=== PATIENT | female | born 1965 | race Caucasian/White ===

== ENCOUNTER → 2018-10-28 | Outpatient (CLI) | payer OTHER | LOC: CARD 08:33 | PROVIDERS: ATTEND Internal Medicine Cardiovascular Disease | DX: R00.0 Tachycardia, unspecified (principal); R06.02 Shortness of breath | CPT/HCPCS: 93017; 93306 ==

== ENCOUNTER → 2021-06-20 | Outpatient (CLI) | payer BC | LOC: CARD 10:30 | PROVIDERS: ATTEND Internal Medicine Cardiovascular Disease | DX: R00.2 Palpitations (principal) | CPT/HCPCS: 93017; 93225; 93226 ==

== ENCOUNTER 2021-11-10 07:48 | Day surgery (SDC) | payer BC ==
[2021-11-10] VITALS (8 sets, daily range): BP systolic 120–142; BP diastolic 78–94
[~2021-11-10] VITALS: Ht 170.2 cm; Wt 65.8 kg
[2021-11-10] MEDS ORDERED: NS IV 1000 ML 1,000 ML ONE (07:53)
[2021-11-10] MEDS ORDERED: HEParin (CATH LAB) 2,000 ML IV ONE (07:53)
[2021-11-10] MEDS ORDERED: LIDOCAINE 1% INJ 20 ML VIAL ONE (07:53)
[2021-11-10 08:21] LABS: HEMATOCRIT 40 % (35-52); HEMOGLOBIN 13.4 g/dL (11.5-16.0); MEAN CORPUSCULAR HEMOGLOBIN 32 pg (25-34); MEAN CORPUSCULAR HGB CONC 34 g/dL (32-36); MEAN CORPUSCULAR VOLUME 94 fL (80-99); MEAN PLATELET VOLUME 10.4 fL (9.0-12.2); PLATELET COUNT 184 10^3/uL (130-400); WHITE BLOOD COUNT 3.4 10^3/uL (4.3-11.0)
[2021-11-10] MEDS ORDERED: fentaNYL INJ 100 MCG/2 ML AMP ONE (08:29)
[2021-11-10] MEDS ORDERED: MIDAZOLAM 5 MG/5 ML (VERSED) VIAL ONE (08:29)
[2021-11-10 08:38] LABS: PROTHROMBIN TIME PATIENT 13.1 SEC (12.2-14.7)
[2021-11-10 08:48] LABS: ALBUMIN 4.2 GM/DL (3.2-4.5); BILIRUBIN,TOTAL 0.5 MG/DL (0.1-1.0); CALCIUM 9.3 MG/DL (8.5-10.1); CREATININE SERUM 0.83 MG/DL (0.60-1.30); POTASSIUM 4.1 MMOL/L (3.6-5.0); TOTAL PROTEIN 7.1 GM/DL (6.4-8.2)
[2021-11-10] MEDS ORDERED: CETI10TA17 PO (08:52)
[2021-11-10] MEDS ORDERED: METO50TA7 PO (08:52)
[2021-11-10] MEDS ORDERED: GLUC100016 PO (08:52)
[2021-11-10] MEDS ORDERED: MELA10TA2 PO (08:52)
[2021-11-10] MEDS ORDERED: IMIP25TA4 PO (08:52)
[2021-11-10] MEDS ORDERED: CALC-140 PO (08:52)
[2021-11-10] MEDS ORDERED: MULT-593 PO (08:52)
[2021-11-10] MEDS ORDERED: NF-PREM2.5 PO (08:52)
[2021-11-10] MEDS ORDERED: TRET40CR4 TP (08:52)
[2021-11-10] MEDS ORDERED: DOCU100T2 PO (08:52)
--- NOTE | 2021-11-10 09:16 | Cardiac Procedure Note-CS/ASA ---
Pre-Procedure Note Pre-Op Procedure Note H&P Reviewed The H&P was reviewed, patient examined and no changes noted. Date H&P Reviewed: November 10, 2021 Time H&P Reviewed: 08:20 Conscious Sedation Pre-Proced Time 08:20 ASA Score 2, 3 For ASA 3 and 4: Consider anesthesia and medical clearance. Also, for patients with a history of failed moderate sedation consider anesthesia. Airway Lungs Heart ASA score ASA 1: a normal healthy patient ASA 2: a patient with a mild systemic disease (mid diabetes, controlled hypertension, obesity ASA 3: a patient with a severe systemic disease that limits activity (angina, COPD, prior Myocardial infarction) ASA 4: a patient with an incapacitating disease that is a constant threat to life (CHF, renal failure) ASA 5: a moribund patient not expected to survive 24 hrs. (ruptured aneurysm) ASA 6: a declared brain- patient whose organs are being harvested. For emergent operations, add the letter E after the classification Mallampati Classification Grade 2 Sedation Plan Analgesia, Amnesia, Plan communicated to team members, Discussed options with patient/fam, Discussed risks with patient/fam The patient is an appropriate candidate to undergo the planned procedure, sedation, and anesthesia. The patient immediately re-assessed prior to indication. KEEGAN COLLINS MD FACP FAC CCDS November 10, 2021 09:16
--- NOTE | 2021-11-10 09:20 | Discharge Inst-Post CATH ---
Discharge Inst-CATH/EP Post Cardiac Cath/EP D/C Inst Follow Up/Plan F/u with Dr Finney in 2-3 weeks ACTIVITY * Go Home directly and rest. * Limit activity of the leg (or wrist if it was used) for 7 days including aerobics, swimming, jogging, bicycling, etc. * Restrict stair-climbing for 7 days if possible, if not, climb up with your non-cath leg, then bring together on the same step. * Avoid lifting, pushing, pulling or excessive movement of the affected extremity for 7 days. * Customary sexual activity may be resumed after 2 days-use caution not to use a position that strains or causes pain to the affected extremity. * No driving for 24 hours. * NO SMOKING. * Avoid straining for bowel movements for 7 days. * Gentle walking on level ground is allowed. * Returning to work will depend on the type of procedure and the results. Your doctor will discuss this with you. CALL YOUR DOCTOR FOR ANY OF THE FOLLOWING: *If bleeding from the puncture site occurs- Apply gentle pressure to site with clean cloth and call your doctor or EMS. * If a knot or lump forms under the skin, increases in size, or causes pain. * If bruising appears to be worsening or moving further down your leg instead of disappearing. * Temperature above 101 F. CARE OF YOUR GROIN INCISION; * Bruising or purple discoloration of the skin near the puncture site is common. * You may shower only, no bathtub bathing for 5 days. Be careful to avoid slipping as your leg may feel stiff. * If a closure device was used on your femoral artery, please see the attached guide regarding care of the device and your leg. * Leave dressing on FOR 24 hours. CARE OF YOUR WRIST INCISION; * Bruising or purple discoloration of the skin near the puncture site is common. * You may shower. * DO NOT submerge wrist. * Leave dressing on FOR 24 hours. KEEGAN FINNEY MD [facility] FAC CCDS November 10, 2021 09:20
--- NOTE | 2021-11-10 09:20 | Discharge Inst-Cardiology ---
Discharge Inst-Cardiac Discharge Medications Continued Medications: Calcium Carbonate/Vitamin D3 (Calcium + Vitamin D Tablet) 600 Mg Calcium-5 Mcg (200 Unit) Tablet 1 EACH PO DAILY, TAB Cetirizine HCl (Cetirizine HCl) 10 Mg Tablet 10 MG PO DAILY, TAB Docusate Sodium (Docusate Sodium) 100 Mg Tablet 200 MG PO BID, TAB Estrog Conj/Medryoxyprog Acet (Prempro 0.625-2.5 mg Tablet) 0.625 Mg-2.5 Mg Tab 1 TAB PO DAILY, TAB Glucosamine Sulfate 2Kcl (Glucosamine) 1,000 Mg Tablet 1000 MG PO DAILY, TAB Imipramine HCl (Imipramine HCl) 25 Mg Tablet 25 MG PO HS, TAB Melatonin (Melatonin) 10 Mg Tablet 10 MG PO HS, TAB Metoprolol Succinate (Metoprolol Succinate) 50 Mg Tab.er.24h 50 MG PO DAILY, TAB Multivitamin with Minerals (Multiple Vitamin) 1 Each Tablet 1 EACH PO DAILY, TAB Tretinoin/Emollient Base (Tretinoin 0.05% Emollient Crm) 0.05 % Cream..g. 1 GM TP HS PRN for RASH, KEEGAN VASQUEZ MD FACP FACC CCDS November 10, 2021 09:20
[2021-11-10] MEDS ORDERED: PATIENT MAY USE OWN MEDS, ALL PO SCH (09:30)
[2021-11-10] MEDS ORDERED: NS IV 1000 ML 1,000 ML IV SCH (09:30)
--- NOTE | 2021-11-10 10:49 | CARDIAC CATHETERIZATION ---
DATE OF SERVICE: 11/10/2021 CARDIAC CATHETERIZATION REPORT INDICATION FOR PROCEDURE: The patient is a 56-year-old lady with coronary artery disease risk factors, hypertension. She has been experiencing vague chest discomfort that is mostly brought on with exertion and relieved with rest. The symptoms have been persistent. Cardiac catheterization was carried out today after having obtained an informed consent. DESCRIPTION OF PROCEDURE: She was brought to the cardiac catheterization laboratory in a fasting state. Right groin was prepared and draped in the usual sterile fashion. Lidocaine 1% was used for local anesthesia. Modified Seldinger technique was used to advance a 5-Czech sheath in right femoral artery, 5-Czech JL4 catheter for left coronary angiography, 5-Czech JR4 catheter for right coronary angiography, 5-Czech pigtail catheter was used for left heart catheterization and left ventricular angiography. At the end of the procedure, angiography of the right femoral artery was carried out through the sheath. Mynx was used to achieve hemostasis. She tolerated the procedure well. HEMODYNAMICS: Left ventricular end-diastolic pressure following coronary angiography was 19 mmHg. There was no significant pressure gradient on pullback across the aortic valve. CORONARY ANGIOGRAPHY: Left main coronary artery, left anterior descending artery, left circumflex artery, right coronary artery are angiographically normal. Right coronary artery is dominant. LEFT VENTRICULAR ANGIOGRAPHY: Left ventricular angiography was carried out in the right anterior oblique projection. Global left ventricular systolic function normal, no regional wall motion abnormalities seen. Left ventricular ejection fraction is estimated to be 65 to 70%. CONCLUSIONS: 1. Angiographically normal coronary arteries. 2. Normal left ventricular systolic function with an ejection fraction approximately 65 to 70%. 3. Left ventricular end-diastolic pressure 19 mmHg. DISCUSSION AND RECOMMENDATIONS: Based on results of the study, it appears appropriate to continue with conservative management. Hypertension is being addressed. Continuing outpatient followup is advised. Job ID: [id number] DocumentID: [id number] Dictated Date: 11/10/2021 09:23:45 Telecommunication Equipment Repairer Date: 11/10/2021 10:48:15 Dictated By: KEEGAN COLLINS MD, MA, FACP, FACC,
== END 2021-11-10 12:25 | disposition home or self-care (01) ==
LOC: CATH 07:48 → SDC 09:40 → CATH 12:25
PROVIDERS: ATTEND Internal Medicine Cardiovascular Disease
DX: I10 Essential (primary) hypertension (principal); R00.2 Palpitations; R07.89 Other chest pain; R06.02 Shortness of breath; R00.0 Tachycardia, unspecified; R06.09 Other forms of dyspnea
CPT/HCPCS: 80053; 80061; 85027; 85610; 85730; 87081; 93458; C1760; C1894; 36415

== ENCOUNTER → 2022-07-16 | Outpatient (CLI) | payer BC ==
[~2022-07-16] MED LIST: CALC-140 PO; CETI10TA17 PO; DOCU100T2 PO; GLUC100016 PO; IMIP25TA4 PO; MELA10TA2 PO; METO50TA7 PO; MULT-593 PO; NF-PREM2.5 PO; RT-ALBUTEROL SULF 2.5 MG/3 ML PRE-MIX VIAL INH ONE; TRET40CR4 TP
== END ==
LOC: RT 15:45
PROVIDERS: ATTEND Internal Medicine Cardiovascular Disease
DX: G47.33 Obstructive sleep apnea (adult) (pediatric) (principal)
CPT/HCPCS: 94060; 94726; 94729

== ENCOUNTER → 2022-07-19 | Outpatient (CLI) | payer BC ==
[~2022-07-19] MED LIST changes: -RT-ALBUTEROL SULF 2.5 MG/3 ML PRE-MIX VIAL INH ONE
== END ==
LOC: CARDFS 15:06
PROVIDERS: ATTEND Internal Medicine Cardiovascular Disease
DX: R06.09 Other forms of dyspnea (principal)
CPT/HCPCS: 93306

== ENCOUNTER → 2022-09-18 | Day surgery (SDC) | payer BC ==
[~2022-09-18] VITALS: Ht 170.2 cm; Wt 66.4 kg
[~2022-09-18] MED LIST changes: +LIDOCAINE 1% INJ 20 ML VIAL INJ ONE; +LIDOCAINE 1% INJ 20 ML VIAL ONE
[2022-09-18 08:32] VITALS: BP 135/87
--- NOTE | 2022-09-18 15:23 | OPERATIVE REPORT ---
DATE OF SERVICE: 09/18/2022 PREOPERATIVE DIAGNOSIS: Palpitations. POSTOPERATIVE DIAGNOSIS: Palpitations. PROCEDURE: Implantable loop recorder implantation. INDICATIONS: The patient is a 57-year-old lady who has been experiencing palpitations that are relatively infrequent. Implantable loop recorder implantation was carried out after having obtained an informed consent. DESCRIPTION OF PROCEDURE: [facility] The left prepectoral area was prepared and draped in the usual sterile fashion. 1% lidocaine used for local anesthesia. The tools provided with the [employer]tronic LINQ II device were used to make a subcutaneous pocket anterior to the fourth intercostal space into which the device was placed and the wound edges were closed using Dermabond and Steri-Strips. The serial number of the devices are [id number]. Job ID: [id number] DocumentID: [id number] Dictated Date: 09/18/2022 09:38:30 Junior Underwriter Date: 09/18/2022 15:20:00 Dictated By: KEEGAN COLLINS MD; LAURIE; FACP; FACC;
== END | disposition home or self-care (01) ==
LOC: CATH 08:01
PROVIDERS: ATTEND Internal Medicine Cardiovascular Disease
DX: R00.2 Palpitations (principal); R00.0 Tachycardia, unspecified; I10 Essential (primary) hypertension; R07.89 Other chest pain; R06.02 Shortness of breath; G47.33 Obstructive sleep apnea (adult) (pediatric); Z79.899 Other long term (current) drug therapy
CPT/HCPCS: 33285; C1764

== ENCOUNTER 2023-01-02 08:04 | Outpatient (CLI) | payer BC ==
[~2023-01-02 08:04] MED LIST changes: -LIDOCAINE 1% INJ 20 ML VIAL INJ ONE; -LIDOCAINE 1% INJ 20 ML VIAL ONE
== END 2023-01-02 08:20 ==
LOC: SLEEP 08:04
PROVIDERS: ATTEND Otolaryngology Otolaryngology/Facial Plastic Surgery
DX: I10 Essential (primary) hypertension (principal); R51.9 Headache, unspecified
CPT/HCPCS: G0399